=== PATIENT | male | born 1995 | race Caucasian/White ===

== ENCOUNTER 2021-05-23 01:20 | Emergency (ER) | payer SELFPAY ==
[~2021-05-23] VITALS: Ht 175.3 cm; Wt 59.1 kg
[2021-05-23 01:50] VITALS: BP 132/80
--- NOTE | 2021-05-23 01:57 | PHYS DOC ---
General Adult EDM: Chief Complaint: NECK PAIN HPI: HPI: Patient is a 22 year old male here with several weeks worth of left-sided neck pain, redness and swelling and large abscess to his left neck, just underneath his mandible. He reports that he is picked at what he thought was a pimple for quite some time, but the pain and redness has progressively worsened. He has not sought any sort of medical care for this until now. He denies any sore throat, difficulty swallowing, voice changes. He denies fevers or chills. Over the last week or so, he has developed some more pain around this area. He denies chest pain, cough, dyspnea. Review of Systems: Review of Systems: Constitutional: Denies fever or chills. [] HENT: Denies nasal congestion or sore throat. [] Respiratory: Denies cough or shortness of breath. [] Cardiovascular: Denies chest pain or edema. [] GI: Denies abdominal pain, nausea, vomiting Musculoskeletal: Denies back pain or joint pain. [] Integument: Abscess of the left neck Neurologic: Denies headache, focal weakness or sensory changes. [] Lymphatic: Swollen cervical adenopathy Psychiatric: Anxiety [] Heart Score: C/O Chest Pain: No Risk Factors: Risk Factors: DM, Current or recent (<one month) smoker, HTN, HLP, family history of CAD, obesity. Risk Scores: Score 0 - 3: 2.5% MACE over next 6 weeks - Discharge Home Score 4 - 6: 20.3% MACE over next 6 weeks - Admit for Clinical Observation Score 7 - 10: 72.7% MACE over next 6 weeks - Early Invasive Strategies Physical Exam: PE: Constitutional: Well developed, well nourished, no acute distress, non-toxic appearance. Anxious, appears uncomfortable HENT: Normocephalic, atraumatic, oropharynx is patent and clear, mucous membranes are moist. No facial or oral edema is noted. No drooling, no trismus, speaks in full and clear senses, no stridor Eyes: Sclera are clear, conjunctive are normal Neck: Trachea is midline. He has a large fluctuant, erythematous, tender abscess of his left lateral neck area, just inferior to the angle of the left mandible. There is mild to moderate surrounding induration and erythema and cellulitis. No palpable crepitus or subcutaneous emphysema. No dusky discoloration. Cardiovascular: Regular rate and rhythm, well-perfused appearing, +2 radial pulses Lungs & Thorax: Bilateral breath sounds clear to auscultation, no rales, rhonchi or wheezes, no stridor, speaks in full and clear sentences. Skin: Large abscess of the left neck, as detailed above. There is mild to moderate surrounding erythema and cellulitis. Extremities: No tenderness, no limb deformity Neurologic: Alert and oriented X 3, normal motor function, normal sensory function, no focal deficits noted. [] Psychologic: Anxious [] EKG: EKG: [] Radiology/Procedures: Radiology/Procedures: IMAGING REPORT Signed PATIENT: MYKE GONSALES ACCOUNT: [id number] : 02/14/1999 LOCATION: ER AGE: 22 SEX: M EXAM STATUS: REG ER ORD. PHYSICIAN: KVNG MARTIN DO REASON: left sided neck abscess;OMNI 300,70ML PROCEDURE: CT SOFT TISSUE NECK W/CONTRAST EXAM: CT NECK SOFT TISSUES WITH CONTRAST. HISTORY: Left neck abscess. TECHNIQUE: Computed tomography of the neck soft tissues was performed after the intravenous administration of iodinated contrast. One or more of the following individualized dose reduction techniques were utilized for this examination: 1. Automated exposure control. 2. Adjustment of the mA and/or kV according to patient size. 3. Use of iterative reconstruction technique. COMPARISON: None. FINDINGS: Images of the lung apices reveal a few blebs measuring up to 2.1 cm on the right. Bone windows reveal no suspicious lesions. An immediately subcutaneous fluid collection in the left submandibular region measures 4.0 x 2.7 cm. It is superficial to the platysma. There is surrounding subcutaneous swelling. And enlarged submental lymph node measures 2.2 x 1.4 cm and is likely reactive in this setting. No other enlarged nodes are seen. The parotid glands and submandibular glands are unremarkable. The thyroid gland reveals no focal lesions. There are no clear laryngeal or pharyngeal masses. IMPRESSION: 1. 4.0 x 2.7 cm subcutaneous abscess in the left submandibular region, superfi cial to the platysma. Electronically signed by: Leah Morales MD (05/23/2021 3:57 AM) [facility] DICTATED and SIGNED BY: KAREN MORALES MD DATE: 05/23/21 [id number] 0 Course & Med Decision Making: Course & Med Decision Making Pertinent Labs and Imaging studies reviewed. (See chart for details) The patient is given IV vancomycin, IV morphine for pain. He tolerated incision and drainage well. I discussed home care and wound care instructions with him. The abscesses drained and appears to be markedly improved. I told him to return to the ER in 2 days for wound check and packing removal. I explained that he will likely have to have this abscess reincised and drained and packed. I encouraged him not instrument this himself, he is to avoid scratching or picking at the area. His tetanus is already up-to-date, was updated within the last month or so. Strict return precautions are given. He is comfortable with the plan of care. Dragon Disclaimer: Dragon Disclaimer: This electronic medical record was generated, in whole or in part, using a voice recognition dictation system. Incision and Drainage Indication: abscess Procedure: The patient was positioned appropriately. 1% lidocaine with epinephrine was used for local anesthesia, adequate anesthesia was achieved. An incision was then made over the apex of the lesion and copious amount of yellow, purulent drainage material was expressed. The drainage cavity was irrigated and packed with sterile gauze. The patients tetanus status is already up-to-date. The patient tolerated the procedure well. Complications: none. Departure Departure Impression: Primary Impression: Abscess of neck Disposition: 01 HOME / SELF CARE / HOMELESS Condition: STABLE Referrals: NO PCP (PCP) Patient Instructions: Abscess Additional Instructions: Take the full course of antibiotics. Use the pain medicine as needed/as directed. Please return to the ER in 2 days for wound check and packing removal. Your abscess will very well likely require repeat incision and drainage. You may need to take a dose of pain medicine before you arrive to help with pain during the procedure. You may return to the ER sooner for any other concerns or problems. Scripts Sulfamethoxazole/Trimethoprim (BACTRIM DS TABLET) 1 Each Tablet 1 TAB PO BID for 10 Days, #20 TAB 0 Refills Prov: KVNG MARTIN DO 05/23/21 Hydrocodone Bit/Acetaminophen (HYDROCODONE-APAP 5-325 ) 1 Tab Tablet 1 TAB PO PRN Q6HRS PRN for PAIN, #20 TAB 0 Refills Prov: KVNG MARTIN DO 05/23/21 KVNG MARTIN DO May 23, 2021 01:57
[2021-05-23] MEDS ORDERED: VANCOMYCIN 1GM IVPB FOR OMNI 250 ML IV ONE (02:15)
[2021-05-23] MEDS ORDERED: MORPHINE SULFATE 4 MG/ML INJ. IVP ONE (02:15)
[2021-05-23 02:27] LABS: BASO # 0.1 x10^3/uL (0.0-0.2); BASO % 1 % (0-3); EOS # 0.3 x10^3/uL (0.0-0.7); EOS % 2 % (0-3); HEMATOCRIT 40.9 % (39.0-53.0); LYMPH # 2.9 x10^3/uL (1.0-4.8); LYMPH % 24 % (24-48); MEAN CORPUSCULAR HEMOGLOBIN 31 pg (25-35); MEAN CORPUSCULAR HGB CONC 34 g/dL (31-37); MEAN CORPUSCULAR VOLUME 92 fL (79-100); MONO # 1.2 x10^3/uL (0.0-1.1); MONO % 10 % (0-9); NEUT # 7.6 x10^3/uL (1.8-7.7); NEUT % 63 % (31-73); PLATELET COUNT 303 x10^3/uL (140-400); RED BLOOD COUNT 4.45 x10^6/uL (4.30-5.70); RED CELL DISTRIBUTION WIDTH 12.6 % (11.5-14.5); WHITE BLOOD COUNT 12.1 x10^3/uL (4.0-11.0)
[2021-05-23] MEDS ORDERED: IOHEXOL 300 MG/ML 100ML VIAL. IV ONE (02:30)
[2021-05-23 02:35] LABS: CALCIUM 8.8 mg/dL (8.5-10.1); CREATININE 0.7 mg/dL (0.7-1.3); GFR 138.6; POTASSIUM 3.7 mmol/L (3.5-5.1)
[2021-05-23] MEDS ORDERED: CONTRAST GIVEN. MC PRN (02:45)
--- NOTE | 2021-05-23 03:59 | RAD ---
EXAM: CT NECK SOFT TISSUES WITH CONTRAST. HISTORY: Left neck abscess. TECHNIQUE: Computed tomography of the neck soft tissues was performed after the intravenous administr ation of iodinated contrast. One or more of the following individualized dose reduction techniques we re utilized for this examination: 1. Automated exposure control. 2. Adjustment of the mA and/or kV according to patient size. 3. Use of iterative reconstruction technique. COMPARISON: None. FINDINGS: Images of the lung apices reveal a few blebs measuring up to 2.1 cm on the right. Bone wind ows reveal no suspicious lesions. An immediately subcutaneous fluid collection in the left submandibular region measures 4.0 x 2.7 cm. It is superficial to the platysma. There is surrounding subcutaneous swelling. And enlarged submental lymph node measures 2.2 x 1.4 cm and is likely reactive in this setting. No other enlarged nodes are seen. The parotid glands and submandibular glands are unremarkable. The thyroid gland reveals no focal lesi ons. There are no clear laryngeal or pharyngeal masses. IMPRESSION: 1. 4.0 x 2.7 cm subcutaneous abscess in the left submandibular region, superficial to the platysma. Electronically signed by: Leah Morales MD (05/23/2021 3:57 AM) [facility]
[2021-05-23] MEDS ORDERED: LIDOCAINE 2%/EPI 1:100,000 20 ML VIAL. ONE (04:07)
[2021-05-23] MEDS ORDERED: LIDOCAINE 1%/EPI 1:100,000 20 ML VIAL. INJ ONE (04:15)
[2021-05-23] MEDS ORDERED: SULF1TAB24 PO (04:45)
[2021-05-23] MEDS ORDERED: HYDROcodone/APAP 5/325MG 1 TAB TABLET PO ONE (04:45)
[2021-05-23] MEDS ORDERED: HYDR-2761 PO (04:45)
== END 2021-05-23 04:56 | disposition home or self-care (01) ==
LOC: EDBD → ER 01:20
DX: L02.11 Cutaneous abscess of neck (principal)
CPT/HCPCS: 10060; 36415; 70491; 80048; 85025; 96365; 96375; 99285; J2270; J3370; J3490; Q9967

== ENCOUNTER 2021-05-25 15:19 | Emergency (ER) | payer SELFPAY ==
[~2021-05-25] VITALS: Ht 175.3 cm; Wt 59.0 kg
[~2021-05-25 15:19] MED LIST: HYDR-2761 PO; SULF1TAB24 PO
[2021-05-25 16:30] VITALS: BP 130/81
--- NOTE | 2021-05-25 17:21 | PHYS DOC ---
Past Medical History Past Surgical History: No Surgical History Smoking Status: Current Every Day Smoker Additional Information: 1 PPD Alcohol Use: None General Adult EDM: Chief Complaint: WOUND CHECK HPI: HPI: 26-year-old male presents the ED for a wound check of his left neck abscess that was I&D 2 days ago. Patient received vancomycin in the ED and was prescribed Bactrim. Patient reports compliance with Bactrim. States packing fell out a few hours prior to ED arrival. Reports small amounts of purulent drainage, no associated rash or fever. Is able to eat and drink. Review of Systems: Review of Systems: Constitutional: Denies fever or chills. [] Eyes: Denies change in visual acuity. [] HENT: Denies nasal congestion or sore throat. [] Respiratory: Denies cough or shortness of breath. [] Cardiovascular: Denies chest pain or edema. [] GI: Denies nausea or vomiting Integument: Denies rash or diaphoresis Neurologic: Denies headache or neck stiffness Endocrine: Denies polyuria or polydipsia. [] Lymphatic: Denies swollen glands. [] Psychiatric: Denies depression or anxiety. [] Heart Score: C/O Chest Pain: No Risk Factors: Risk Factors: DM, Current or recent (<one month) smoker, HTN, HLP, family history of CAD, obesity. Risk Scores: Score 0 - 3: 2.5% MACE over next 6 weeks - Discharge Home Score 4 - 6: 20.3% MACE over next 6 weeks - Admit for Clinical Observation Score 7 - 10: 72.7% MACE over next 6 weeks - Early Invasive Strategies Allergies: Allergies: Allergies Coded Allergies Type Severity Reaction Last Updated Verified No Known Drug Allergies 05/23/21 No Physical Exam: PE: Constitutional: Well developed, well nourished, no acute distress, non-toxic appearance. HENT: Normocephalic, atraumatic, quarter size raised area of skin over left anterior neck with a 5 cm incision-pact with some discomfort/no purulent drainage-does have appropriate/minimal bloody drainage Eyes: EOMI, conjunctiva normal, no discharge. Neck: Normal range of motion, supple, Cardiovascular: S1/2 present, regular rhythm Lungs & Thorax: Speaking in full sentences, bilateral equal chest rise, no tachypnea or increased work of breathing Skin: Warm, dry, no erythema, no rash. [] Extremities: No tenderness, no cyanosis, Neurologic: Alert and oriented X 3, normal motor function, normal sensory function, no focal deficits noted. [] Psychologic: Affect normal, judgement normal, mood normal. [] Current Patient Data: Vital Signs: Vital Signs Date Time Temp Pulse Resp B/P (MAP) Pulse Ox O2 Delivery O2 Flow Rate FiO2 05/25/21 16:30 97.5 80 17 130/81 (97) 97 Room Air 97.5 EKG: EKG: [] Radiology/Procedures: Radiology/Procedures: [] Course & Med Decision Making: Course & Med Decision Making Pertinent Labs and Imaging studies reviewed. (See chart for details) Encounter for wound check and repacking. Patient with quarter size abscess and states the packing fell out a few hours prior to arrival. Reports he is compliant with his antibiotics. No erythema or cellulitis on physical exam. Wound was repacked and dressed with sterile dressings-appears to be healing well/appropriately with no purulent drainage. Vitals normal/HD stable. Patient given very strict return precautions for fever, rash, head or neck swelling or worsening pain. Encouraged urgent outpatient follow-up with PMD or wound care in 2-3 days. Life-threatening processes were considered but are low suspicion at this time, given history, physical exam and ED workup. Pt was educated on all prescription medications and adverse effects. All patient's questions were answered and pt was stable at time of discharge. Life/limb-threatening differential includes but is not limited to, infection or rash (including osteomyelitis, necrotizing fasciitis, cellulitis), wound dehiscence, tendon injury, traumatic injury etc I have spoken with the patient and/or caregivers. I explained the patient's condition, diagnoses and treatment plan based on the information available to me at this time. I have answered the patient and/or caregiver's questions and addressed any concerns. The patient and/or caregivers have a good understanding of patient's diagnosis, condition and treatment plan as can be expected at this point. Vital signs have been stable. Patient's condition is stable and appropriate for discharge from the emergency department. Patient will pursue further outpatient evaluation with primary care physician or other designated or consulting physician as outlined in the discharge instructions. The patient and/or caregivers are agreeable to this plan of care and follow-up instructions have been explained in detail. The patient and/or caregivers have received these instructions in written form and have expressed an understanding of the discharge instructions. The patient and/or caregivers are aware that any significant change of condition or worsening of symptoms should prompt immediate return to this or the closest emergency department or call to 911. Nathan Disclaimer: Nathan Disclaimer: This electronic medical record was generated, in whole or in part, using a voice recognition dictation system. Departure Departure Impression: Primary Impression: Encounter for wound re-check Additional Impression: Encounter for removal of abscess packing Disposition: HOME / SELF CARE / HOMELESS Condition: STABLE Referrals: NO PCP (PCP) Follow-up with your primary care physician in 2-3 days for wound check/consider repacking OR FOLLOW UP WITH FAMILY MEDICINE: [id number], [address] [place] [address] Patient Instructions: Abscess, Care After, Wound Care, [id number] Additional Instructions: FOLLOW UP WITH WOUND CARE: FOR DEFINITIVE MANAGEMENT in 2-3 days for wound check/remove packing and consider re-packing [facility] [address], [address] [place] [address] EMERGENCY DEPARTMENT GENERAL DISCHARGE INSTRUCTIONS Thank you for coming to [facility] Emergency Department (ED) today and trusting us with you care. We trust that you had a positive experience in our Emergency Department. If you wish to speak to the department management, you may call the Director at [phone]. YOUR FOLLOW UP INSTRUCTIONS ARE FOLLOWS: 1. Do you have a private Doctor? If you do not have a private doctor, please ask for a resource list of physicians or clinics that may be able to assist you with follow up care. 2. The Emergency Physicain has interpreted your x-rays. The X-Ray specialist will also review them. If there is a change in the findings, you will be notified in 48 hours when at all possible. 3. A lab test or culture has been done, your results will be reviewed and you will be notified if you need a change in treatment. ADDITIONAL INSTRUCTIONS AND INFORMATION: 1. Your care today has been supervised by a physician who is specially trained in emergency care. Many problems require more than one evaluation for a complete diagnosis and treatment. We recommend that you schedule your follow up appointment as recommended to ensure complete treatment of you illness or injury. If you are unable to obtain follow up care and continue to have a problem, or if your condition worsens, we recommend that you return to the ED. 2. We are not able to safely determine your condition over the phone nor are we able to give sound medical advice over the phone. For these safety reasons, if you call for medical advice we will ask you to come to the ED for further evaluation. 3. If you have any questions regarding these discharge instructions please call the ED at [phone]. SAFETY INFORMATION: In the interest of safety, wellness, and injury prevention; we encourage you to wear your sealbelt, if you smoke; quite smoking, and we encourage family to use a protective helmet for bicycling and other sporting events that present an increased risk for head injury. IF YOUR SYMPTOMS WORSEN OR NEW SYMPTOMS DEVELOP, OR YOU HAVE CONCERNS ABOUT YOUR CONDITION; OR IF YOUR CONDITION WORSENS WHILE YOU ARE WAITING FOR YOUR FOLLOW UP APPOINTMENT; EITHER CONTACT YOUR PRIMARY CARE DOCTOR, THE PHYSICIAN WHOSE NAME AND NUMBER YOU WERE GIVEN, OR RETURN TO THE ED IMMEDIATELY. PRABHU MIRANDA DO May 25, 2021 17:21
== END 2021-05-25 17:36 | disposition home or self-care (01) ==
LOC: ER 15:19
DX: L02.11 Cutaneous abscess of neck (principal); F17.200 Nicotine dependence, unspecified, uncomplicated
CPT/HCPCS: 99281